=== PATIENT | male | born 1960 | race Caucasian/White ===

== ENCOUNTER 2017-03-08 10:12 | Emergency (ER) | payer BC, OTHER ==
--- NOTE | 2017-03-08 10:39 | EDM.PDOC ---
ED HPI GENERAL MEDICAL PROBLEM - General Chief Complaint: Lower Extremity Injury/Pain Stated Complaint: LEG REDNESS AND SWELLING Time Seen by Provider: 03/08/17 10:26 Source of Information: Reports: Patient History Limitations: Reports: No Limitations - History of Present Illness INITIAL COMMENTS - FREE TEXT/NARRATIVE: The patient presents with left inner thigh pain and redness. This started 4 days ago. It was a small quarter size area at that time. He denies any trauma. He has no fever or chills. He has edema to the left lower leg. He was in the [facility] 3 weeks ago but did not notice anything then. He has no medical problems. He has no chest pain, shortness of breath, abdominal pain, nausea or vomiting. Onset: Gradual Duration: Day(s): (4) Location: Reports: Lower Extremity, Left (thigh) Quality: Reports: Sharp Severity: Moderate Improves with: Reports: None Worsens with: Reports: None Context: Reports: Other (No trauma noted) Associated Symptoms: Reports: No Other Symptoms left inner upper thigh Pain Score (Numeric/FACES): 6 - Related Data Allergies Allergy/AdvReac Type Severity Reaction Status Date / Time No Known Allergies Allergy Verified 03/08/17 10:21 Home Meds: Home Meds Bp Pill 1 tab PO DAILY 03/08/17 [History] Cholesterol Pill 1 tab PO DAILY 03/08/17 [History] Doxycycline [Vibramycin] 100 mg PO Q12HR #20 cap 03/08/17 [Rx] Past Medical History HEENT History: Reports: Impaired Vision Cardiovascular History: Reports: High Cholesterol, Hypertension Musculoskeletal History: Reports: Arthritis Endocrine/Metabolic History: Reports: Obesity/BMI 30+ - Past Surgical History GI Surgical History: Reports: Hernia, Inguinal Social & Family History - Family History Family Medical History: Noncontributory - Tobacco Use Smoking Status *Q: Never Smoker Second Hand Smoke Exposure: No - Caffeine Use Caffeine Use: Reports: None - Recreational Drug Use Recreational Drug Use: No Review of Systems - Review of Systems Review Of Systems: See Below Constitutional: Reports: No Symptoms Eyes: Reports: No Symptoms Ears: Reports: No Symptoms Nose: Reports: No Symptoms Mouth/Throat: Reports: No Symptoms Respiratory: Reports: No Symptoms Cardiovascular: Reports: No Symptoms GI/Abdominal: Reports: No Symptoms Genitourinary: Reports: No Symptoms Musculoskeletal: Reports: Other (Left inner thigh erythema and pain) ED EXAM, GENERAL - Physical Exam Exam: See Below Exam Limited By: No Limitations General Appearance: Alert, No Apparent Distress Ears: Normal External Exam Nose: Normal Inspection Head: Atraumatic, Normocephalic Neck: Normal Inspection Respiratory/Chest: No Respiratory Distress, Lungs Clear, Normal Breath Sounds Cardiovascular: Regular Rate, Rhythm, No Edema, No Murmur GI/Abdominal: Soft, Non-Tender, No Organomegaly Back Exam: Normal Inspection Extremities: Other (Large area of erythema to the left inner thigh with no fluctuance. Edema to that area and distally. Good sensation and pulsed noted distally. No abrasions or puncture wounds noted in that area.) Course - Vital Signs Last Recorded V/S: Last Vital Signs Temp 97.5 F 03/08/17 10:17 Pulse 89 03/08/17 10:17 Resp 18 03/08/17 10:17 BP 160/95 H 03/08/17 10:17 Pulse Ox 94 L 03/08/17 10:17 - Orders/Labs/Meds Orders: Active Orders 24 hr Category Date Time Status VL Duplex Lwr Ext Veins Ltd Lt [US] Stat Exams 03/08/17 10:32 Taken cefTRIAXone [Rocephin] 1 gm Med 03/08/17 10:45 Active Lidocaine 1% [Xylocaine 1%] 2.1 ml IM Q24H Medication Orders Ceftriaxone Sodium 1 gm/ (Lidocaine HCl 2.1 ml) 0 gm IM Q24H RAFITA Last Admin: 03/08/17 10:51 Dose: 2.1 inj Labs: Laboratory Tests 03/08/17 03/08/17 Range/Units 10:50 10:50 WBC 6.57 (4.23-9.07) K/mm3 RBC 5.12 (4.63-6.08) M/mm3 Hgb 16.8 (13.7-17.5) gm/L Hct 46.8 (40.1-51.0) % MCV 91.4 (79.0-92.2) fl MCH 32.8 H (25.7-32.2) pg MCHC 35.9 H (32.2-35.5) g/dl RDW Std Deviation 42.9 (35.1-43.9) fL Plt Count 180 (163-337) K/mm3 MPV 9.7 (9.4-12.3) fl Neut % (Auto) 74.9 H (34.0-67.9) % Lymph % (Auto) 15.7 L (21.8-53.1) % Hutchinson % (Auto) 7.5 (5.3-12.2) % Eos % (Auto) 1.4 (0.8-7.0) Baso % (Auto) 0.2 (0.1-1.2) % Neut # (Auto) 4.93 (1.78-5.38) K/mm3 Lymph # (Auto) 1.03 L (1.32-3.57) K/mm3 Hutchinson # (Auto) 0.49 (0.30-0.82) K/mm3 Eos # (Auto) 0.09 (0.04-0.54) K/mm3 Baso # (Auto) 0.01 (0.01-0.08) K/mm3 Sodium 140 (136-145) mEq/L Potassium 3.3 L (3.5-5.1) mEq/L Chloride 104 (98-107) mEq/L Carbon Dioxide 27 (21-32) mEq/L Anion Gap 12.3 (5-15) BUN 20 H (7-18) mg/dL Creatinine 1.3 (0.7-1.3) mg/dL Est Cr Clr Drug Dosing 82.03 mL/min Estimated GFR (MDRD) 57 (>60) mL/min BUN/Creatinine Ratio 15.4 (14-18) Glucose 161 H (74-106) mg/dL Calcium 9.4 (8.5-10.1) mg/dL Total Bilirubin 1.0 (0.2-1.0) mg/dL AST 19 (15-37) U/L ALT 54 (16-63) U/L Alkaline Phosphatase 79 (46-116) U/L C-Reactive Protein 3.4 H* (<1.0) mg/dL Total Protein 7.4 (6.4-8.2) g/dl Albumin 3.8 (3.4-5.0) g/dl Globulin 3.6 gm/dL Albumin/Globulin Ratio 1.1 (1-2) Meds: Medications Generic Name Dose Route Start Last Admin Trade Name Freq PRN Reason Stop Dose Admin Ceftriaxone Sodium 1 gm/ 0 gm 03/08/17 10:45 12/03/17 10:51 Lidocaine HCl 2.1 ml IM 2.1 inj Q24H RAFITA Administration - Re-Assessments/Exams Free Text/Narrative Re-Assessment/Exam: 03/08/17 10:42 I ordered an US of his left leg, labs and a shot of rocephin 1 gram IM. 03/08/17 11:51 His CBC looks good. His K was a little low at 3.3. His glucose was a little elevated at 161. His CRP was elevated at 3.4. The US showed no DVT. He did have some reactive lymph nodes. I will get him on some doxycycline and discharge him home. Departure - Departure Time of Disposition: 11:55 Disposition: Home, Self-Care 01 Condition: Good Clinical Impression: Cellulitis Qualifiers: Site of cellulitis: extremity Site of cellulitis of extremity: lower extremity Laterality: left Qualified Code(s): L03.116 - Cellulitis of left lower limb - Discharge Information Prescriptions: Doxycycline [Vibramycin] 100 mg PO Q12HR #20 cap Referrals: Massiel Zuleta, [facility] [Primary Care Provider] - 1 Week Forms: ED Department Discharge Additional Instructions: Take the doxycycline 100mg 2 times per day for 10 days. Put a warm compress on your leg 2 to 3 times per day for 5 days. This may look worse for a day or 2 but after that it should start clearing up. If if does not or if you feel worse please return of see your doctor. - My Orders Last 24 Hours: My Active Orders 03/08/17 10:32 VL Duplex Lwr Ext Veins Ltd Lt [US] Stat 03/08/17 10:45 cefTRIAXone [Rocephin] 1 gm Lidocaine 1% [Xylocaine 1%] 2.1 ml IM Q24H - Assessment/Plan Last 24 Hours: My Active Orders 03/08/17 10:32 VL Duplex Lwr Ext Veins Ltd Lt [US] Stat 03/08/17 10:45 cefTRIAXone [Rocephin] 1 gm Lidocaine 1% [Xylocaine 1%] 2.1 ml IM Q24H
[2017-03-08] MEDS ORDERED: cefTRIAXone 1 GM, Lidocaine 1% 2.1 ML IM SCH ×2 (10:45)
--- NOTE | 2017-03-08 12:00 | US ---
Left lower extremity deep venous ultrasound: Duplex and color flow imaging was obtained of the left common femoral, superficial femoral, proximal greater saphenous, popliteal, posterior tibial, peroneal veins and right common femoral vein. Lack of phasic flow is seen within the posterior tibial vein but this posterior tibial vein shows normal compression and augmentation. Other veins show normal augmentation, compression and phasic flow. Incidental lymph node is seen within the left inguinal region. No subcutaneous edema is seen in area described as redness within the left medial thigh. Impression: 1. No findings of deep venous thrombosis within the left lower extremity or within the right common femoral vein. Diagnostic code #1
== END 2017-03-08 12:14 | disposition home or self-care (01) ==
LOC: JD.ED 10:12
DX: L03.116 Cellulitis of left lower limb (principal); I10 Essential (primary) hypertension; E78.00 Pure hypercholesterolemia, unspecified; Z79.899 Other long term (current) drug therapy
CPT/HCPCS: 36415; 80053; 85025; 86140; 93971; 96372; 99284; J0696; 99283

== ENCOUNTER 2020-04-29 15:38 | Emergency (ER) | payer BC ==
--- NOTE | 2020-04-29 16:21 | EDM.PDOC ---
ED HPI GENERAL MEDICAL PROBLEM - General Chief Complaint: Upper Extremity Injury/Pain Stated Complaint: LEFT ELBOW PAIN Time Seen by Provider: 04/29/20 15:59 Source of Information: Reports: Patient History Limitations: Reports: No Limitations - History of Present Illness INITIAL COMMENTS - FREE TEXT/NARRATIVE: The patient presents with left elbow pain. He was working on a new vacuvator and it caught his leg and pulled him and he hit his left elbow on a piece of metal. He has no other injuries. He is right handed. Onset: Sudden Duration: Minutes: Location: Reports: Upper Extremity, Left (elbow) Quality: Reports: Sharp Severity: Moderate Improves with: Reports: Immobilization Worsens with: Reports: Movement Context: Reports: Trauma Associated Symptoms: Reports: No Other Symptoms Left Elbow Pain Score (Numeric/FACES): 5 Left Lower Arm Pain Score (Numeric/FACES): 5 - Related Data Allergies Allergy/AdvReac Type Severity Reaction Status Date / Time No Known Allergies Allergy Verified 04/29/20 16:09 Home Meds: Home Meds Rosuvastatin [Crestor] 5 mg PO DAILY 04/29/20 [History] hydroCHLOROthiazide [Hydrochlorothiazide] 25 mg PO DAILY 04/29/20 [History] Past Medical History HEENT History: Reports: Impaired Vision Cardiovascular History: Reports: High Cholesterol, Hypertension Musculoskeletal History: Reports: Arthritis Endocrine/Metabolic History: Reports: Obesity/BMI 30+ - Past Surgical History GI Surgical History: Reports: Hernia, Inguinal Social & Family History - Family History Family Medical History: No Pertinent Family History - Caffeine Use Caffeine Use: Reports: None Review of Systems - Review of Systems Review Of Systems: See Below Constitutional: Reports: No Symptoms Eyes: Reports: No Symptoms Ears: Reports: No Symptoms Nose: Reports: No Symptoms Mouth/Throat: Reports: No Symptoms Respiratory: Reports: No Symptoms Cardiovascular: Reports: No Symptoms GI/Abdominal: Reports: No Symptoms Genitourinary: Reports: No Symptoms Musculoskeletal: Reports: Other (Left elbow pain) ED EXAM, GENERAL - Physical Exam Exam: See Below Exam Limited By: No Limitations General Appearance: Alert, No Apparent Distress Ears: Normal External Exam Nose: Normal Inspection Head: Atraumatic, Normocephalic Neck: Normal Inspection Respiratory/Chest: No Respiratory Distress Extremities: Other (Pain upon palpation and edema to the olecranon process of the left elbow. Good sensation and pulses distally.) ED TRAUMA EXTREMITY PROCEDURES - Splinting Left Upper Extremity Splint Site: Left elbow Pre-Procedure NV Status: Normal Post-Procedure NV Status: Normal Splint Material: Fiberglass Splint Design: Gutter, Sling Applied & Form Fitted By: Provider Provider Post-Splint Application NV Check: NV Status Normal, Good Position Complications: No Course - Vital Signs Last Recorded V/S: Last Vital Signs Temp 97.9 F 04/29/20 16:04 Pulse 70 04/29/20 16:04 Resp 20 04/29/20 16:04 BP 167/89 H 04/29/20 16:04 Pulse Ox 98 04/29/20 16:04 - Re-Assessments/Exams Free Text/Narrative Re-Assessment/Exam: 04/29/20 16:20 I ordered an x-ray of his elbow. 04/29/20 17:35 He does have a bone chip off of his olecranon process. I called Dr Madrigal and he wanted him in a splint and he will see him this week and order an MRI. Departure - Departure Time of Disposition: 17:40 Disposition: Home, Self-Care 01 Condition: Good Clinical Impression: Olecranon fracture Qualifiers: Encounter type: initial encounter Fracture type: closed Laterality: left Qualified Code(s): S52.022A - Displaced fracture of olecranon process without intraarticular extension of left ulna, initial encounter for closed fracture - Discharge Information *PRESCRIPTION DRUG MONITORING PROGRAM REVIEWED*: Not Applicable *COPY OF PRESCRIPTION DRUG MONITORING REPORT IN PATIENT ROMAN: Not Applicable Referrals: Le Ruffin MD [Primary Care Provider] - Stephen Madrigal MD [Physician] - 1 Week Forms: ED Department Discharge Additional Instructions: Ice your arm for 15 minutes 4 to 5 times per day for the next couple days. Try to elevate your arm above your heart as much as you can for the next 2 days. Follow up with Dr Madrigal this week. Please return if you are worse. Sepsis Event Note (ED) - Evaluation Sepsis Screening Result: No Definite Risk - Focused Exam Vital Signs: Vital Signs Temp Pulse Resp BP Pulse Ox 04/29/20 16:04 97.9 F 70 20 167/89 H 98
--- NOTE | 2020-04-29 17:16 | CR ---
Left Elbow: 4 views left elbow were obtained. Comparison: No prior elbow study is available. Fractured spur is noted off the olecranon process at the attachment of the triceps tendon. This spur is displaced by approximately 1.3 cm. Incidental supracondylar process is noted. Posterior soft tissue swelling is noted. Several small calcifications within the common flexor tendon attachment is seen off the medial epicondyle. This is most likely old. No acute bone effusion is seen. Impression: 1. Fractured olecranon process spur. 2. Soft tissue swelling and other findings as noted above which are nonacute. Diagnostic code #3
== END 2020-04-29 17:52 | disposition home or self-care (01) ==
LOC: JD.ED 15:38
DX: S52.022A Displaced fracture of olecranon process without intraarticular extension of left ulna, initial encounter for closed fracture (principal); E78.00 Pure hypercholesterolemia, unspecified; I10 Essential (primary) hypertension; E66.9 Obesity, unspecified; Z79.899 Other long term (current) drug therapy; W22.8XXA Striking against or struck by other objects, initial encounter
CPT/HCPCS: 29105; 29125; 73080-26-LT; 73080-LT; 99283; 99283-25

== ENCOUNTER 2021-11-25 18:50 | Emergency (ER) | payer BC ==
[2021-11-25] MEDS ORDERED: Sulfamethoxazole/Trimethoprim 800-160 MG Tab PO ONE (21:27)
== END 2021-11-25 21:54 | disposition home or self-care (01) ==
LOC: JD.ED 18:50
DX: L03.116 Cellulitis of left lower limb (principal); E78.00 Pure hypercholesterolemia, unspecified; I10 Essential (primary) hypertension; E66.9 Obesity, unspecified; Z68.34 Body mass index [BMI] 34.0-34.9, adult; Z79.899 Other long term (current) drug therapy
CPT/HCPCS: 36415; 80053; 85025; 85379; 86140; 93971; 99284; A9270

== ENCOUNTER 2023-03-26 19:38 | Emergency (ER) | payer BC ==
[2023-03-26 21:15] LABS: CORONAVIRUS COVID-19 NAA NEGATIVE (NEGATIVE); INFLUENZA A NAA POSITIVE (NEGATIVE); RESPIRATORY SYNCYTIAL VIR NAA NEGATIVE (NEGATIVE)
== END 2023-03-26 21:50 | disposition home or self-care (01) ==
LOC: JD.ED 19:38
DX: J10.1 Influenza due to other identified influenza virus with other respiratory manifestations (principal); I10 Essential (primary) hypertension; E66.9 Obesity, unspecified; E78.00 Pure hypercholesterolemia, unspecified; Z79.899 Other long term (current) drug therapy; Z20.822 Contact with and (suspected) exposure to COVID-19; Z68.36 Body mass index [BMI] 36.0-36.9, adult
CPT/HCPCS: 0241U; 71045; 99285; 99283

== ENCOUNTER 2024-03-31 23:15 | Emergency (ER) | payer BC ==
[2024-04-01] MEDS: hydrALAZINE 20 MG/ML SDV IVPUSH ONE (01:16)
[2024-04-01 01:18] LABS: BASOPHILS PERCENT AUTO 0.2 % (0.0-1.0); EOSINOPHILS PERCENT AUTO 0.3 % (0.0-6.0); HEMATOCRIT 48.6 % (42.0-52.0); HEMOGLOBIN 17.3 gm/dl (14.0-18.0); IMMATURE GRAN ABSOLUTE AUTO 0.06 K/mm3 (0.00-0.05); IMMATURE GRAN PERCENT AUTO 0.6 % (0.0-0.4); LYMPHOCYTES ABSOLUTE AUTO 1.6 K/mm3 (1.0-4.8); LYMPHOCYTES PERCENT AUTO 15.7 % (24.0-44.0); MEAN CORPUSCULAR HEMOGLOBIN 32.6 pg (28.0-32.0); MEAN CORPUSCULAR HGB CONC 35.6 g/dl (32.0-36.0); MEAN CORPUSCULAR VOLUME 91.7 fl (83.0-99.0); MEAN PLATELET VOLUME 9.1 fl (9.4-12.4); MONOCYTES ABSOLUTE AUTO 0.8 K/mm3 (0.0-0.8); MONOCYTES PERCENT AUTO 8.1 % (0.0-8.0); NEUTROPHILS ABSOLUTE AUTO 7.8 K/mm3 (1.8-7.7); NEUTROPHILS PERCENT AUTO 75.1 % (41.0-71.0); PLATELET COUNT,PLT 199 K/mm3 (150-400); WHITE BLOOD CELL COUNT,WBC 10.39 K/mm3 (3.9-11.3)
[2024-04-01] MEDS: Sodium Chloride 0.9% 10 ML Syringe FLUSH PRN (01:19)
[2024-04-01 01:44] LABS: A/G RATIO 1.3 (1-2); ANION GAP 13.5 (5-15); BILIRUBIN TOTAL 0.6 mg/dL (0.2-1.0); BUN/CREATININE RATIO 19.2 (14-18); CALCIUM 8.8 mg/dL (8.5-10.1); CREATININE 1.2 mg/dL (0.7-1.3); EST CRCL DRUG DOSING (CG) 81.46 mL/min; PROTEIN TOTAL,TP 7.2 g/dl (6.4-8.2)
[2024-04-01 01:49] LABS: POTASSIUM,K 3.5 mEq/L (3.5-5.1)
== END 2024-04-01 03:20 | disposition home or self-care (01) ==
LOC: JD.ED 23:15
DX: R51.9 Headache, unspecified (principal); I10 Essential (primary) hypertension; E78.00 Pure hypercholesterolemia, unspecified; E66.9 Obesity, unspecified; Z79.899 Other long term (current) drug therapy; Z68.36 Body mass index [BMI] 36.0-36.9, adult
CPT/HCPCS: 36415; 70450; 80053; 85025; 93005; 96374; 99284; J0360